=== PATIENT | female | born 1965 | race African-American/Black ===

== ENCOUNTER 2025-06-18 09:53 | Emergency (ER) | payer SELFPAY ==
[~2025-06-18] VITALS: Ht 160 cm; Wt 168.0 kg
[2025-06-18 09:55] VITALS: BP 170/84; PULSE 94; RESP 16; TEMP 36.9; O2SAT 96
== END 2025-06-18 11:44 | disposition home or self-care (01) ==
LOC: ER 09:53
DX: R04.0 Epistaxis (principal); Z88.0 Allergy status to penicillin
CPT/HCPCS: 99283